=== PATIENT | male | born 1995 | race Caucasian/White ===

== ENCOUNTER 2017-01-11 02:35 | Emergency (ER) | payer MEDICAID ==
[~2017-01-11] VITALS: Wt 72.5 kg
[2017-01-11 05:07] VITALS: BP 108/65; PULSE 72; RESP 20; TEMP 98.6
--- NOTE | 2017-01-11 05:14 | ERD ---
ER Documentation Chief Complaint Date/Time DATE: 01/11/17 TIME: 05:08 Chief Complaint Syncopal episode. Pt reports being sleep deprived. 1 beer ingested. HPI This 21-year-old male presents emergency room for a brief syncopal episode at home. He did drink of beer when he was playing video games. He suddenly stood up after playing the video games and felt very lightheaded and then slowly went down but did not strike his head or injure himself in any way. It lasted only a second or so. He had no chest pain. He said no fevers or chills recently. He has had no further episodes and feels well now. States that he just feels tired. Is otherwise healthy ROS All systems reviewed and are negative except as per history of present illness. Medications Home Meds No Active Prescriptions or Reported Meds Allergies Allergies: Coded Allergies: No Known Allergy (Unverified , 11/06/13) PMhx/Soc Medical and Surgical Hx: pt denies Medical Hx History of Surgery: Yes (APPY 2012) Anesthesia Reaction: No Hx Neurological Disorder: No Hx Respiratory Disorders: Yes (ASTHMA) Hx Cardiac Disorders: No Hx Psychiatric Problems: No Hx Miscellaneous Medical Probl: No Hx Alcohol Use: No Hx Substance Use: No Hx Tobacco Use: No Smoking Status: Never smoker Physical Exam Vitals Vital Signs Date Time Temp Pulse Resp B/P Pulse Ox O2 Delivery O2 Flow Rate FiO2 01/11/17 05:07 98.6 72 20 108/65 98 Room Air 01/11/17 03:38 98.6 76 20 116/73 100 Room Air 82 127/75 86 133/78 01/11/17 02:43 98.6 78 20 127/83 97 Physical Exam Const: [] No distress, conversive. Head: Atraumatic Eyes: Normal Conjunctiva, EOMI, PRL ENT: Normal External Ears, Nose and Mouth. Neck: Full range of motion..~ No meningismus. Resp: Clear to auscultation bilaterally Cardio: Regular rate and rhythm, no murmurs Skin: No petechiae or rashes Ext: No cyanosis, or edema Neur: Awake and alert and oriented 3, cranial nerves II through XII intact, no cerebellar deficits, normal gait Psych: Normal Mood and Affect Procedures/MDM Likely vasovagal symptoms couple episodes in healthy young adult. EKG within normal limits. Patient's symptoms resolved. Symptoms after being down low for a while then suddenly standing up. No continued symptoms. I doubt cardiac arrhythmia. Discharge with primary care follow-up in the next 2 days. Father is at bedside discharge was explained to him as well. EKG interpretation: Normal sinus rhythm rate of 72, normal axis, no ST or T- wave changes concerning for acute ischemia. Normal respiratory variation. Normal intervals. Normal EKG Departure Diagnosis: Primary Impression: Syncope Condition: Stable Patient Instructions: Causes of Syncope, Syncope, Vasovagal Referrals: [facility] YOU HAVE RECEIVED A MEDICAL SCREENING EXAM AND THE RESULTS INDICATE THAT YOU DO NOT HAVE A CONDITION THAT REQUIRES URGENT TREATMENT IN THE EMERGENCY DEPARTMENT. FURTHER EVALUATION AND TREATMENT OF YOUR CONDITION CAN WAIT UNTIL YOU ARE SEEN IN YOUR DOCTORS OFFICE WITHIN THE NEXT 1-2 DAYS. IT IS YOUR RESPONSIBILITY TO MAKE AN APPOINTMENT FOR FOLOW-UP CARE. IF YOU HAVE A PRIMARY DOCTOR --you should call your primary doctor and schedule an appointment IF YOU DO NOT HAVE A PRIMARY DOCTOR YOU CAN CALL OUR PHYSICIAN REFERRAL HOTLINE AT IF YOU CAN NOT AFFORD TO SEE A PHYSICIAN YOU CAN CHOSE FROM THE FOLLOWING [facility] [address]. [facility] [address] [facility] [facility] [address] [facility] [facility] [address] [facility]. [facility] [address] [facility] [facility]. [address] [place] Additional Instructions: Call your primary care doctor TOMORROW for an appointment during the next 1-2 days.See the doctor sooner or return here if your condition worsens before your appointment time. ASIA GUERRA DO Jan 11, 2017 05:14
== END 2017-01-11 05:07 | disposition home or self-care (01) ==
LOC: E/R 02:35
DX: R55 Syncope and collapse (principal); J45.909 Unspecified asthma, uncomplicated
CPT/HCPCS: 93005; Z7502

== ENCOUNTER 2017-01-20 12:56 | Emergency (ER) | payer MEDICAID ==
[~2017-01-20] VITALS: Ht 170.2 cm; Wt 70.0 kg
[2017-01-20 13:10] VITALS: Ht 170.2 cm; Wt 70.0 kg
[2017-01-20] MEDS ORDERED: PSEU120T51 PO (14:22)
[2017-01-20] MEDS ORDERED: KET2CR15 TOP (14:27)
--- NOTE | 2017-01-20 14:59 | ERA ---
ER Documentation Chief Complaint Date/Time DATE: 01/20/17 TIME: 14:49 Chief Complaint pt feels weak and dizzy x 1 day, denies pain HPI This is an otherwise healthy 21-year-old male who is presenting with a chief complaints of dizziness. Patient does not have dizziness at this time. Patient states that the dizziness has occurred 3 times in the past month or so and the latest episode was 1 day ago. States that there is pressure in the head every once in a while but denies headache. 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 Patient denies any exacerbating factors. States the dizziness improves with sitting down. Medical history is positive for seasonal allergies. Denies family history of any heart, lung or neurological disorders. Has had no recent travel and no changes in diet. Social history includes smoking marijuana but does not take any medications or use other recreational drugs. Drinks socially but denies abuse. Patient has not taken anything to relieve the symptoms. Denies fever, chills, headache, shortness of breath, chest pain, weakness or other RPND. Patient is also complaining of a rash that started a month or 2 ago. Patient states that the rash is mildly pruritic but not overly bothersome and has not taken any medications to relieve the symptoms. States that the cause could be from the cardboard boxes at work. Patient has worked there for over 1 year. Denies any other possible environmental factors. ROS All systems reviewed and are negative except as per history of present illness. Medications Home Meds Active Scripts Ketoconazole* (Ketoconazole* 2% Cream (15gm)) 1 Applic Cr, 1 APPLIC TOP BID for 28 Days, TUB Prov:TRACY HARRELL PA-C 01/20/17 Pseudoephedrine Hcl (Sudafed 12 Hour) 120 Mg Tablet.sa, 120 MG PO BID for 14 Days Prov:TRACY HARRELL PA-C 01/20/17 Allergies Allergies: Coded Allergies: No Known Allergy (Unverified , 11/06/13) PMhx/Soc History of Surgery: Yes (APPY 2012) Anesthesia Reaction: No Hx Neurological Disorder: No Hx Respiratory Disorders: Yes (ASTHMA) Hx Cardiac Disorders: No Hx Psychiatric Problems: No Hx Miscellaneous Medical Probl: No Hx Alcohol Use: No Hx Substance Use: No Hx Tobacco Use: No Physical Exam Vitals Vital Signs Date Time Temp Pulse Resp B/P Pulse Ox O2 Delivery O2 Flow Rate FiO2 01/20/17 13:10 61 18 141/78 96 Physical Exam Const: Healthy-appearing. Well-nourished. Well-developed. No acute distress. Head: Normocephalic, Atraumatic. No sinus tenderness. Eyes: Non-injected; No scleral erythema, discharge or foreign body. EOMI and CUAUHTEMOC bilaterally. Ears: Left tympanic membrane retracted and erythematous; right tympanic membrane retracted. Light cone reflex visualized bilaterally. Normal External Ears, EACs clear. Nose: Normal nose without discharge, septal deviation, or sinus tenderness. Oral: No oral edema visualized. Mucous membranes moist and pink. Neck: No cervical lymphadenopathy, masses or goiter palpated. Full range of motion. Supple. Trachea midline. ~ No meningismus. Pulm: Good air movement in upper and lower respiratory tracts. No dyspnea, stridor, tripoding or drooling. Clear to auscultation bilaterally. Percussion unremarkable in all lung neumann bilaterally. Cardio: Regular rate and rhythm; No murmurs, gallops or rubs auscultated. No JVD grossly observed. Radial and posterior tibial pulses 2+ bilaterally. No cyanosis. Capillary refill less than 2 seconds. Abd: Soft, non tender, non distended. No guarding, masses. Normal bowel sounds. No McBurney's point tenderness. MS: Normal motor strength, normal tone with gross examination. Skin: Macular hypopigmentation spots varying from 0.5-20+ cm visualized on arms and chest and back that were nonraised described as pruritic. No ulcer, induration, jaundice. Good turgor. Back: No midline, flank or CVA tenderness. Ext: No cyanosis, or edema. Normal movement of all extremities grossly observed. Neur: Awake, alert and oriented x3. Neurovascularly intact bilaterally. Psych: Active and alert. Normal Mood and Affect. Oriented x3. Procedures/MDM Patient is presenting with 2 chief complaints of rash and dizziness as described in history and physical examination. Patient signs and symptoms of dizziness are most consistent with allergies. At this time I very little suspicion for any bacterial involvement, neurological involvement or other acute pathologies. Patient will be given Sudafed to decrease the pressure and relieve the symptoms. Have given patient discharge instructions return precautions. Have spoke in length with the patient about the necessity of returning to the emergency department if these symptoms change or worsen or persist. Patient's rash is most consistent with tinea versicolor appearing after patient starts to become Terrance. Patient will be given ketoconazole cream. Has been advised to follow-up with family practitioner within the next 1-3 days for a more thorough evaluation and possible referral to specialist if symptoms not resolved. Patient's vitals are stable and his current condition is appropriate for discharge. Patient will be given discharge instructions with return precautions. 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 FURTHER EVALUATION AND TREATMENT OF YOUR CONDITION CAN WAIT UNTIL YOU ARE SEEN IN YOUR DOCTORS OFFICE WITHIN THE NEXT 1-2 DAYS. IT IS YOUR RESPONSIBILITY TO MAKE AN APPOINTMENT FOR FOLOW-UP CARE. IF YOU HAVE A PRIMARY DOCTOR --you should call your primary doctor and schedule an appointment IF YOU DO NOT HAVE A PRIMARY DOCTOR YOU CAN CALL OUR PHYSICIAN REFERRAL HOTLINE AT IF YOU CAN NOT AFFORD TO SEE A PHYSICIAN YOU CAN CHOSE FROM THE FOLLOWING [facility] [address] [facility] [address] [facility] [facility] [address] [facility] [address] [facility] [address] [facility] [facility] [facility] Usted se curiel hecho un examen mdico de control que le indica que no est en sofia condicin que requiera tratamiento urgente en el Departamento de Emergencia. Un estudio ms profundo y el tratamiento de barker condicin pueden esperar sin ningn riesgo hasta que usted sea atendida/o en el consultorio de barker mdico o sofia cl heike. Es responsabilidad suya arreglar sofia sugar para el seguimiento del cecilia. MANEJO DE CONDICIONES NO URGENTES EN EL FUTURO 1) Si usted tiene un mdico de atencin primaria: Usted debera llamar a barker mdico de atencin primaria antes de venir al departamento de emergencia. Despus de las horas de consultorio, barker doctor o barker asociado/a est disponible por telfono. El mdico o enfermero de corn[place] en el servicio telefnico puede asesorarle por rosamaria medio para atender el problema, o cecilia contrario se puede programar sofia sugar. 2) Si usted no tiene un mdico de atencin primaria: Llame al mdico o clnica de referencia que aparece abajo michoacano las horas de consultorio para hacer sofia sugar para que le vean. CLINICAS: [facility] [phone] [address] [facility] [phone] [facility]. [facility] [phone] [address] [facility]. [facility] [phone] [facility]. [place] [phone] [address] [facility]. [phone] [address] Additional Instructions: Follow up with your PCP within the next 1-3 days for a more thorough evaluation and a possible referral to a specialist. Return the the emergency department immediately if symptoms worsen or change. If you have any questions regarding medications, ask your pharmacist or us before you leave. If any adverse reactions occur while taking your medications, discontinue the treatment and return to the emergency department immediately. Take your medications as directed, and complete the entire course of treatment. TRACY HARRELL PA-C Jan 20, 2017 14:59
[2017-01-20] MEDS ORDERED: QUET150T PO (16:12)
[2017-01-20] MEDS ORDERED: IBUP-1542 PO (16:12)
[2017-01-20] MEDS ORDERED: PANT40TA3 PO (16:16)
[2017-01-20] MEDS ORDERED: QUET100T PO (16:24)
--- NOTE | 2017-01-20 16:42 | QN ---
Documentation Comment The patient was unhappy with the care he received in ER 3 and felt like he was being rushed through the system. I sat down with the patient in chair 1 and spoke with him at length regarding his concerns. I will give him a prescription for ibuprofen, Protonix, and Seroquel. He was requesting refills of alprazolam and wanted a prescription for Tylenol 3 and I told him that I would not give him controlled substances as we do not give refills for these types of medicines. He will need to follow-up with his primary doctor within 1 week for reevaluation and could return if symptoms worsen. The patient thanked me after our discussion and said that he was happy with the care he received. He even asked for my name and said that he was going to give a commendation for the care received. JO IRAHETA MD Jan 20, 2017 16:42
== END 2017-01-20 16:15 | disposition home or self-care (01) ==
LOC: FTE 12:56 → E/R 16:15
DX: J32.9 Chronic sinusitis, unspecified (principal); R42 Dizziness and giddiness; J30.2 Other seasonal allergic rhinitis; B36.0 Pityriasis versicolor
CPT/HCPCS: 99283